=== PATIENT | female | born 1955 | race Hispanic/Latino ===

== ENCOUNTER 2023-12-25 11:25 | Emergency (ER) | payer MEDICARE ==
[~2023-12-25] VITALS: Ht 149.9 cm; Wt 68.0 kg
[2023-12-25 11:35] VITALS: PULSE 91; RESP 18; TEMP 98.5; O2SAT 95
[2023-12-25] MEDS ORDERED: TRIAMCINOLONE A15 G1 TOP (11:56)
== END 2023-12-25 12:00 | disposition home or self-care (01) ==
LOC: FSED 11:41
DX: R21 Rash and other nonspecific skin eruption (principal); I10 Essential (primary) hypertension; E11.9 Type 2 diabetes mellitus without complications; E78.5 Hyperlipidemia, unspecified
CPT/HCPCS: 99283

== ENCOUNTER 2024-11-25 10:22 | Emergency (ER) | payer MEDICARE ==
[~2024-11-25 10:22] MED LIST: TRIAMCINOLONE A15 G1 TOP
[2024-11-25 10:25] VITALS: PULSE 86; RESP 16; TEMP 98.1; O2SAT 98
[2024-11-25] MEDS ORDERED: DIFLUCAN100 MG PO (10:43)
[2024-11-25] MEDS ORDERED: CEFDINIR300 MG PO (10:43)
[2024-11-25] MEDS ORDERED: CEFTRIAXONE 1 GM VIAL ONE (10:46)
[2024-11-25] MEDS ORDERED: LIDOCAINE HCL 10 MG/ML VIAL INJ ONE (10:46)
[2024-11-25] MEDS: CEFTRIAXONE 1 GM VIAL IM ONE (10:48)
== END 2024-11-25 10:53 | disposition home or self-care (01) ==
LOC: FSED 10:26
DX: R30.0 Dysuria (principal); N30.91 Cystitis, unspecified with hematuria; R53.1 Weakness; I10 Essential (primary) hypertension; E11.9 Type 2 diabetes mellitus without complications; E78.5 Hyperlipidemia, unspecified
CPT/HCPCS: 81003; 99284; J0696